=== PATIENT | female | born 1970 | race Caucasian/White ===

== ENCOUNTER 2024-12-18 16:36 | Emergency (ER) | payer BC, OTHER ==
[2024-12-18] MEDS ORDERED: Boostrix 0.5 ML (Tdap) VIAL (>/=7 yrs of age) ONE (16:52)
== END 2024-12-18 16:56 | disposition home or self-care (01) ==
LOC: BURERS 16:36
DX: S60.457A Superficial foreign body of left little finger, initial encounter (principal); I10 Essential (primary) hypertension; Z23 Encounter for immunization; W45.8XXA Other foreign body or object entering through skin, initial encounter
CPT/HCPCS: 90471; 90715